=== PATIENT | female | born 1970 | race Caucasian/White ===

== ENCOUNTER 2017-04-04 10:54 | Day surgery (SDC) | payer OTHER ==
[~2017-04-04] VITALS: Ht 170.2 cm; Wt 153.7 kg
[~2017-04-04 10:54] MED LIST: LOESTRIN 1/21 TABLET PO; PROVERA,CYCRIN10 MG PO; TRAMADOL HCL50 MG PO
[2017-04-04 12:00] VITALS: BP 130/75
[2017-04-04 15:40] VITALS: BP 135/72
[2017-04-04 16:52] VITALS: BP 148/69
[2017-04-11 08:28] LABS: INTERNAL CONTROL VALID? YES
== END 2017-04-04 17:10 | disposition home or self-care (01) ==
LOC: SDC 10:54
PROVIDERS: Orthopaedic Surgery Sports Medicine
PROC: 0SBD4ZZ Excision of Left Knee Joint, Percutaneous Endoscopic Approach (ICD-10-PCS; principal; 2017-04-04)
DX: M17.12 Unilateral primary osteoarthritis, left knee (principal); M23.222 Derangement of posterior horn of medial meniscus due to old tear or injury, left knee; M65.862 Other synovitis and tenosynovitis, left lower leg; E66.01 Morbid (severe) obesity due to excess calories; Z68.42 Body mass index [BMI] 45.0-49.9, adult; G47.30 Sleep apnea, unspecified; R73.03 Prediabetes
CPT/HCPCS: 84703; J0171; J0330; J1885; J2250; J2405; J3010

== ENCOUNTER → 2017-09-08 | Outpatient (CLI) | payer OTHER ==
[~2017-09-08] VITALS: Ht 170.2 cm; Wt 154.5 kg
[~2017-09-08] MED LIST changes: +PRINIVIL10 MG PO
== END | disposition home or self-care (01) ==
LOC: AMB 13:00
DX: K63.5 Polyp of colon (principal); Z83.71 Family history of colonic polyps; I10 Essential (primary) hypertension; E66.9 Obesity, unspecified; Z68.43 Body mass index [BMI] 50.0-59.9, adult; G47.30 Sleep apnea, unspecified
CPT/HCPCS: 88305; 93005; J2250